=== PATIENT | female | born 1940 | race Caucasian/White ===

== ENCOUNTER 2019-05-07 16:47 | Emergency (ER) | payer MEDICARE, OTHER ==
[~2019-05-07] VITALS: Ht 167.6 cm; Wt 74.8 kg
[2019-05-07] MEDS ORDERED: ASPIRIN 325 MG TABLET PO ONE (17:00)
[2019-05-07] MEDS ORDERED: NITROGLYCERIN 0.4 MG/TAB BOTTLE SL ONE (17:00)
[2019-05-07] MEDS ORDERED: NITROGLYCERIN 0.4 MG/TAB BOTTLE ONE (17:01)
[2019-05-07] MEDS ORDERED: ASPIRIN 325 MG TABLET ONE (17:01)
[2019-05-07 17:02] LABS: BASOPHILS # (AUTO) 0.1 /CMM (0.0-0.2); BASOPHILS % (AUTO) 0.7 % (0.0-2.0); EOSINOPHILS % (AUTO) 1.8 % (0.0-6.0); HEMATOCRIT 41 % (33-45); HEMOGLOBIN 13.5 g/dL (11.5-14.8); LYMPHOCYTES # (AUTO) 2.8 /CMM (0.8-4.8); LYMPHOCYTES % (AUTO) 37.7 % (20.0-44.0); MEAN CORPUSCULAR HGB CONC 33 g/dl (31.0-36.0); MEAN CORPUSCULAR VOLUME 90 fL (82-100); MONOCYTES # (AUTO) 0.7 /CMM (0.1-1.30); MONOCYTES % (AUTO) 9.3 % (2.0-12.0); NEUTROPHILS # (AUTO) 3.8 /CMM (1.8-8.9); NEUTROPHILS % (AUTO) 50.5 % (43.0-81.0); PLATELET COUNT (AUTO) 450 /CMM (150-450); RED BLOOD CELL COUNT(AUTO) 4.56 MIL/uL (4.0-5.2); WHITE BLOOD COUNT (AUTO) 7.5 K/uL (4.3-11.0)
--- NOTE | 2019-05-07 17:05 | NUR ---
patient came in to the ER BIB family c/o chest pain pressure like pain since this morning. On room air, breathing evenly and unlabored. connected to the monitor and pulse ox. kept comfortable, will continue to monitor accordingly.
--- NOTE | 2019-05-07 17:05 | NUR ---
Nitro 0.4mg 1 tab given SL
[2019-05-07 17:10] LABS: CARBON DIOXIDE 27 mmol/L (21-32); CHLORIDE 105 mmol/L (98-107); CREATININE 0.9 mg/dL (0.6-1.3); GLUCOSE 103 mg/dL (74-106); POTASSIUM 3.7 mmol/L (3.5-5.1); SODIUM SERUM 140 mmol/L (136-145); UREA NITROGEN, BLOOD 23 mg/dL (7-18)
--- NOTE | 2019-05-07 17:10 | NUR ---
Patient verbalized and denies any chest pain at this time after 1 dose of nitro 0.4mg SL, MD made aware.
[2019-05-07] MEDS ORDERED: LOVA40TA2 PO (17:47)
[2019-05-07] MEDS ORDERED: GABA-532 PO (17:47)
[2019-05-07] MEDS ORDERED: IBUP-1488 PO (17:47)
[2019-05-07] MEDS ORDERED: MECL-102 PO (17:47)
[2019-05-07] MEDS ORDERED: TRAM50TA2 PO (17:47)
[2019-05-07] MEDS ORDERED: CITA10TA9 PO (17:47)
[2019-05-07] MEDS ORDERED: OMEP-293 PO (17:47)
[2019-05-07] MEDS ORDERED: PROP20TA19 PO (17:47)
--- NOTE | 2019-05-07 17:48 | NUR ---
PANEL ON-CALL PAGED
--- NOTE | 2019-05-07 18:45 | NUR ---
IV removed. Catheter intact and site benign. Pressure and 4x4 applied to site. No bleeding noted.
--- NOTE | 2019-05-07 18:45 | NUR ---
Patient does not wish to proceed with medical care recommended by Dr. GRAFF. Patient given information related to possible complications, up to and including , which could occur as a result of leaving the hospital at this time. Patient verbalizes understanding of risks involved due to leaving against medical advice. Patient has signed AMA form.
[2019-05-07 19:02] VITALS: BP 167/81
--- NOTE | 2019-05-07 19:03 | NUR ---
Patient does not wish to proceed with medical care recommended by Dr. Abbott. Patient given information related to possible complications, up to and including , which could occur as a result of leaving the hospital at this time. Patient verbalizes understanding of risks involved due to leaving against medical advice. Patient has signed AMA form.
[2019-05-09] MEDS ORDERED: METO25TA6 PO (10:05)
== END 2019-05-07 19:03 | disposition left against medical advice (07) ==
LOC: ER 16:54 → TELE1 18:33 → UNDOADMIN 18:33
DX: R07.89 Other chest pain (principal); E78.5 Hyperlipidemia, unspecified; Z79.899 Other long term (current) drug therapy
CPT/HCPCS: 36415; 71045-TC; 80048-TC; 84484-TC; 85025-TC

== ENCOUNTER 2019-05-08 07:21 | Inpatient (IN) | payer MEDICARE, OTHER ==
[~2019-05-08] VITALS: Ht 198.1 cm; Wt 78.7 kg
[~2019-05-08 07:21] MED LIST: CITA10TA9 PO; GABA-532 PO; IBUP-1488 PO; LOVA40TA2 PO; MECL-102 PO; OMEP-293 PO; PROP20TA19 PO; TRAM50TA2 PO
[2019-05-08] MEDS ORDERED: METOPROLOL TARTRATE INJ 5 MG/5 ML AMPUL IVP ONE (08:00)
[2019-05-08] MEDS ORDERED: NITROGLYCERIN PACKET 1 GM PACKET TD ONE (08:00)
[2019-05-08] MEDS ORDERED: METOPROLOL TARTRATE INJ 5 MG/5 ML AMPUL ONE ×2 (08:02→11:10)
[2019-05-08] MEDS ORDERED: NITROGLYCERIN PACKET 1 GM PACKET ONE (08:03)
[2019-05-08 08:14] LABS: BASOPHILS % (AUTO) 0.8 % (0.0-2.0); CALCIUM, SERUM 9.4 mg/dL (8.5-10.1); CREATININE 0.8 mg/dL (0.6-1.3); EOSINOPHILS % (AUTO) 1.6 % (0.0-6.0); HEMATOCRIT 40 % (33-45); HEMOGLOBIN 13.4 g/dL (11.5-14.8); LYMPHOCYTES # (AUTO) 1.5 /CMM (0.8-4.8); LYMPHOCYTES % (AUTO) 23.6 % (20.0-44.0); MEAN CORPUSCULAR HGB CONC 33 g/dl (31.0-36.0); MEAN CORPUSCULAR VOLUME 90 fL (82-100); MONOCYTES # (AUTO) 0.6 /CMM (0.1-1.30); MONOCYTES % (AUTO) 9.3 % (2.0-12.0); NEUTROPHILS % (AUTO) 64.7 % (43.0-81.0); PLATELET COUNT (AUTO) 434 /CMM (150-450); POTASSIUM 4.1 mmol/L (3.5-5.1); RED BLOOD CELL COUNT(AUTO) 4.46 MIL/uL (4.0-5.2); WHITE BLOOD COUNT (AUTO) 6.1 K/uL (4.3-11.0)
[2019-05-08] MEDS ORDERED: MORPHINE SULFATE INJ 2 MG/ML DISP.SYRIN IV ONE (08:30)
[2019-05-08] MEDS ORDERED: ONDANSETRON HCL/PF 4 MG/2 ML VIAL IVP ONE (08:30)
[2019-05-08] MEDS ORDERED: MORPHINE SULFATE INJ 4 MG/ML DISP.SYRIN ONE (08:36)
[2019-05-08] MEDS ORDERED: ONDANSETRON HCL/PF 4 MG/2 ML VIAL ONE (08:36)
[2019-05-08 09:25] LABS: APPEARANCE,URINE Clear (CLEAR); BILIRUBIN,URINE Negative (NEGATIVE); BLOOD, URINE Negative Ery/uL (NEGATIVE); COLOR,URINE Yellow (YELLOW); KETONES,URINE Negative (NEGATIVE); LEUKOCYTE ESTERASE ,URINE Negative (NEGATIVE); NITRITE, URINE Negative (NEGATIVE); PH,URINE 6.5 (5.0-8.0); PROTEIN,URINE Negative (NEGATIVE); UGLUCOSE Negative (NEGATIVE); UROBILINOGEN,URINE 0.2 EU/dL (0.2)
[2019-05-08] MEDS ORDERED: IV NS 0.9% 250 ML IV ONE (10:59)
[2019-05-08] MEDS ORDERED: IOHEXOL-350 100 ML VIAL IV ONE (10:59)
[2019-05-08] MEDS ORDERED: METOPROLOL TARTRATE 25 MG TABLET PO ONE (11:00)
[2019-05-08] MEDS ORDERED: NITROGLYCERIN 0.4 MG/TAB BOTTLE ONE (11:10)
[2019-05-08] MEDS: METOPROLOL TARTRATE INJ 5 MG/5 ML AMPUL IVP PRN ×3 (11:22→11:32)
[2019-05-08] MEDS ORDERED: NITROGLYCERIN 0.4 MG/TAB BOTTLE SL PRN (11:30)
[2019-05-08] MEDS ORDERED: IV NS 0.9% 500 ML IV PRN (11:30)
[2019-05-08] MEDS ORDERED: PROPRANOLOL HCL 10 MG TABLET PO SCH (11:30)
[2019-05-08] MEDS: NITROGLYCERIN PACKET 1 GM PACKET TOP SCH ×3 (12:00→23:12)
[2019-05-08 13:00] VITALS: BP 139/69
[2019-05-08 16:00] VITALS: BP 125/69
[2019-05-08] MEDS ORDERED: ASPIRIN EC 81 MG TABLET.DR PO ONE (17:00)
[2019-05-08 19:30] VITALS: BP 157/63
[2019-05-08 20:00] VITALS: BP 157/63
[2019-05-08] MEDS: METOPROLOL TARTRATE 25 MG TABLET PO SCH (20:09)
[2019-05-08] MEDS: ATORVASTATIN 40 MG TABLET PO SCH (21:43)
[2019-05-08] MEDS: TEMAZEPAM 15 MG CAPSULE PO PRN (23:56)
[2019-05-09] VITALS (7 sets, daily range): BP systolic 128–180; BP diastolic 65–84
[2019-05-09] MEDS: NITROGLYCERIN PACKET 1 GM PACKET TOP SCH ×3 (05:49→18:50)
[2019-05-09 07:39] LABS: CHOLESTEROL 218 mg/dL (<200); HDL CHOLESTEROL 61 mg/dL (40-60); LDL 146 mg/dL (0-99); TRIGLYCERIDES 72 mg/dL (30-150)
[2019-05-09] MEDS: TRAMADOL HCL 50 MG TABLET PO SCH (08:04)
[2019-05-09] MEDS: GABAPENTIN 100 MG CAPSULE PO SCH (08:04)
[2019-05-09] MEDS: METOPROLOL TARTRATE 25 MG TABLET PO SCH ×2 (08:05→21:07)
[2019-05-09] MEDS: CITALOPRAM HYDROBROMIDE 10 MG TABLET PO SCH (08:05)
[2019-05-09] MEDS ORDERED: ATORVASTATIN 10 MG TABLET PO SCH (09:00)
[2019-05-09] MEDS ORDERED: ASPIRIN 325 MG TABLET PO SCH (09:00)
[2019-05-09] MEDS: VALSARTAN 80 MG TABLET PO SCH (09:24)
[2019-05-09] MEDS ORDERED: METO25TA6 PO (10:05)
[2019-05-09] MEDS: TEMAZEPAM 15 MG CAPSULE PO PRN (21:06)
[2019-05-09] MEDS: ATORVASTATIN 40 MG TABLET PO SCH (21:06)
[2019-05-10] MEDS: NITROGLYCERIN PACKET 1 GM PACKET TOP SCH ×3 (00:53→12:09)
[2019-05-10] MEDS: hydrALAZINE HCL 25 MG TABLET PO PRN ×2 (06:12→12:17)
[2019-05-10 06:16] VITALS: BP 183/91
[2019-05-10 08:00] VITALS: BP 175/81
[2019-05-10] MEDS: CITALOPRAM HYDROBROMIDE 10 MG TABLET PO SCH (08:22)
[2019-05-10] MEDS: VALSARTAN 80 MG TABLET PO SCH (08:22)
[2019-05-10] MEDS: GABAPENTIN 100 MG CAPSULE PO SCH (08:24)
[2019-05-10] MEDS: TRAMADOL HCL 50 MG TABLET PO SCH (08:24)
[2019-05-10 08:34] LABS: CALCIUM, SERUM 9.2 mg/dL (8.5-10.1); CREATININE 0.7 mg/dL (0.6-1.3); MAGNESIUM 1.9 mg/dL (1.8-2.4); POTASSIUM 3.8 mmol/L (3.5-5.1)
[2019-05-10] MEDS ORDERED: ASPIRIN EC 81 MG TABLET.DR PO SCH (09:00)
[2019-05-10] MEDS ORDERED: ASPIRIN 325 MG TABLET PO SCH (09:00)
[2019-05-10] MEDS ORDERED: METOPROLOL TARTRATE 25 MG TABLET PO SCH (09:00)
[2019-05-10 12:17] VITALS: BP 161/80
== END 2019-05-10 13:30 | disposition home or self-care (01) | DRG 280 ==
LOC: ER 07:21 → TELE 10:57 → MED 05-09 09:36
PROVIDERS: ADMIT Internal Medicine; ATTEND Internal Medicine
DX: I16.0 Hypertensive urgency (principal); N17.0 Acute kidney failure with tubular necrosis; I21.A1 Myocardial infarction type 2; I10 Essential (primary) hypertension; M48.061 Spinal stenosis, lumbar region without neurogenic claudication; G62.9 Polyneuropathy, unspecified; E78.5 Hyperlipidemia, unspecified; K21.9 Gastro-esophageal reflux disease without esophagitis; Z91.19 Patient's noncompliance with other medical treatment and regimen; M54.5 Low back pain; M41.86 Other forms of scoliosis, lumbar region; M48.07 Spinal stenosis, lumbosacral region
CPT/HCPCS: 36415; 71045-TC; 72131-TC; 75574; 76770-TC; 80048-TC; 80061-TC; 81000-TC; 82962-TC; 83735-TC; 84484-TC; 85025-TC; 85610-TC; 85730-TC; 87081-TC; 93307-TC; 97116-TC; 97530-TC; G0378; J2270; J2405; J3490; J7030; J7050; Q9967

== ENCOUNTER 2019-11-07 16:30 | Emergency (ER) | payer MEDICARE, OTHER ==
[~2019-11-07] VITALS: Ht 162.6 cm; Wt 80.7 kg
[~2019-11-07 16:30] MED LIST changes: -MECL-102 PO; +MECL-159 PO; +METO25TA6 PO; -OMEP-293 PO; +OMEP20CA15 PO; -PROP20TA19 PO
--- NOTE | 2019-11-07 16:50 | NUR ---
BIB DAUGHTER FOR WORSENING HEADACHE AND HYPERTENSION SINCE YESTERDAY, HAD CONTACT W/ COVID19 + FAMILY 12 DAYS AGO. TO ER BED 8, HOOKED TO MONITOR, CHANGED TO HOSP GOWN, WARM BLANKET PROVIDED, PATIENT AAO x 4, BREATHING EVEN AND UNLABORED. ROMY ESPINOSA AT BEDSIDE FOR EVAL
[2019-11-07] MEDS ORDERED: LISINOPRIL (20MG) 20 MG TABLET PO STA (17:03)
[2019-11-07] MEDS ORDERED: ACETAMINOPHEN ES 500 MG TABLET ONE (17:27)
[2019-11-07] MEDS ORDERED: ACETAMINOPHEN ES 500 MG TABLET PO ONE (17:30)
--- NOTE | 2019-11-07 17:39 | NUR ---
CORONAVIRUS SWAB DONE AND SENT TO LAB
[2019-11-07 17:50] LABS: BASOPHILS # (AUTO) 0.1 /CMM (0.0-0.2); BASOPHILS % (AUTO) 0.8 % (0.0-2.0); EOSINOPHILS % (AUTO) 2.2 % (0.0-6.0); HEMATOCRIT 37 % (33-45); HEMOGLOBIN 12.3 g/dL (11.5-14.8); LYMPHOCYTES # (AUTO) 1.8 /CMM (0.8-4.8); LYMPHOCYTES % (AUTO) 25.4 % (20.0-44.0); MEAN CORPUSCULAR HGB CONC 34 g/dl (31.0-36.0); MEAN CORPUSCULAR VOLUME 89 fL (82-100); MONOCYTES # (AUTO) 0.6 /CMM (0.1-1.30); MONOCYTES % (AUTO) 9.2 % (2.0-12.0); NEUTROPHILS # (AUTO) 4.3 /CMM (1.8-8.9); NEUTROPHILS % (AUTO) 62.4 % (43.0-81.0); PLATELET COUNT (AUTO) 441 /CMM (150-450); RED BLOOD CELL COUNT(AUTO) 4.14 MIL/uL (4.0-5.2)
[2019-11-07 17:56] LABS: CALCIUM, SERUM 9.3 mg/dL (8.5-10.1); CARBON DIOXIDE 30 mmol/L (21-32); CHLORIDE 103 mmol/L (98-107); CREATININE 1.6 mg/dL (0.6-1.3); GLUCOSE 134 mg/dL (74-106); SODIUM SERUM 137 mmol/L (136-145); UREA NITROGEN, BLOOD 16 mg/dL (7-18)
[2019-11-07 18:12] LABS: ALANINE AMINOTRANSFERASE 117 U/L (12-78); ALBUMIN 3.4 g/dL (3.4-5.0); ALKALINE PHOSPHATASE 110 U/L (46-116); ASPARTATE AMINOTRANSFERASE 39 U/L (15-37); BILIRUBIN,DIRECT 0.1 mg/dL (0.0-0.2); BILIRUBIN,TOTAL 0.3 mg/dL (0.2-1.0); TOTAL PROTEIN, SERUM 8.4 g/dL (6.4-8.2)
[2019-11-07] MEDS ORDERED: LOSA1TAB39 PO (18:45)
[2019-11-07] MEDS ORDERED: CLON0.1T PO (18:45)
[2019-11-07] MEDS ORDERED: HYDR-4077 PO (18:45)
[2019-11-07] MEDS ORDERED: PROP20TA19 PO (18:45)
[2019-11-07] MEDS ORDERED: LORA-258 PO (18:45)
[2019-11-07] MEDS ORDERED: AMLO5TAB9 PO (18:45)
[2019-11-07] MEDS ORDERED: MINO10TA PO (18:45)
[2019-11-07] MEDS ORDERED: hydrALAZINE HCL IV 20 MG VIAL ONE (19:06)
--- NOTE | 2019-11-07 19:16 | NUR ---
REPORT GIVEN TO BREANNA CARROLL FOR DANIELE
--- NOTE | 2019-11-07 19:21 | NUR ---
CALLED [facility].
[2019-11-07] MEDS ORDERED: hydrALAZINE HCL IV 20 MG VIAL IV ONE (19:30)
--- NOTE | 2019-11-07 19:41 | NUR ---
IV removed. Catheter intact and site benign. Pressure and 4x4 applied to site. No bleeding noted.
--- NOTE | 2019-11-07 19:41 | NUR ---
Patient does not wish to proceed with medical care recommended by Dr. Tracy. Patient given information related to possible complications, up to and including , which could occur as a result of leaving the hospital at this time. Patient verbalizes understanding of risks involved due to leaving against medical advice. Patient has signed AMA form.
[2019-11-07 19:43] VITALS: BP 157/70
--- NOTE | 2019-11-08 06:55 | NUR ---
REC'D NEG RESULTS BY LAB FROM [facility]
== END 2019-11-07 19:44 | disposition left against medical advice (07) ==
LOC: ER 16:30
DX: I16.0 Hypertensive urgency (principal); N17.9 Acute kidney failure, unspecified; J98.11 Atelectasis; R51 Headache; Z20.828 Contact with and (suspected) exposure to other viral communicable diseases; Z79.899 Other long term (current) drug therapy
CPT/HCPCS: 36415; 71045; 80048; 80076; 84484; 85025; 85730; 87081; 93005; 96374; 99291; J0360; C9803-CS; U0003-CS